=== PATIENT | male | born 1980 | race Caucasian/White ===

== ENCOUNTER 2017-11-16 23:50 | Emergency (ER) | payer SELFPAY ==
[~2017-11-16] VITALS: Ht 185.4 cm; Wt 163.4 kg
[~2017-11-16 23:50] MED LIST: OXYC-360 PO; PHEN12.5 PO; Z.0.NO CURRENT MEDS
[2017-11-17 00:03] VITALS: BP 146/98; PULSE 108; RESP 16; TEMP 98.5; O2SAT 94
[2017-11-17 00:15] VITALS: BP 146/98; PULSE 108; RESP 16; TEMP 98.5; O2SAT 94
--- NOTE | 2017-11-17 00:29 | PD ---
HPI Chief Complaint: Back pain Time Seen by Provider: 00:20 Travel History International Travel<30 days: No Contact w/Intl Traveler<30days: No Traveled to known affect area: No History of Present Illness HPI 36 years old male complains of low back pain. Patient states that he had intermittent low back pain for the past year. Patient states the pain can get worse for the past several days. Patient states that the pain aching pain and sharp pain started in the low back area with radiation to the legs. Patient complains of occasional numbness tingling sensation of the left thigh. Patient denies any dysuria frequency. Patient denies any fever chills. Patient denies any injury. Patient states that the back pain is worse with bending over. On a scale of 1-10 the pain is a 7. Patient has history kidney stone in the past. Patient denies any saddle anesthesia. Patient denies any urinary or bowel incontinence. PFSH Past Medical History Diminished Hearing: No Social History Alcohol Use: No Tobacco Use: No Allergies-Medications (Allergen,Severity, Reaction): Coded Allergies: No Known Allergies (Verified Adverse Reaction, Unknown, 11/17/17) Reported Meds & Prescriptions Reported Meds & Active Scripts Active Review of Systems General / Constitutional: No: Fever Eyes: No: Visual changes HENT: No: Headaches Cardiovascular: No: Chest Pain or Discomfort Respiratory: No: Shortness of Breath Gastrointestinal: No: Abdominal Pain Genitourinary: No: Dysuria Musculoskeletal: No: Pain Skin: No Rash Neurologic: No: Weakness Psychiatric: No: Depression Endocrine: No: Polydipsia Hematologic/Lymphatic: No: Easy Bruising Physical Exam Narrative GENERAL: Well-nourished, well-developed patient. SKIN: Focused skin assessment warm/dry. HEAD: Normocephalic. EYES: No scleral icterus. No injection or drainage. NECK: Supple, trachea midline. No JVD or lymphadenopathy. CARDIOVASCULAR: Regular rate and rhythm without murmurs, gallops, or rubs. RESPIRATORY: Breath sounds equal bilaterally. No accessory muscle use. GASTROINTESTINAL: Abdomen soft, non-tender, nondistended. MUSCULOSKELETAL: No cyanosis, or edema. BACK: Patient has moderate tenderness in palpation lower lumbar area, without obvious deformity. No CVA tenderness. Positive straight leg raising bilaterally. Neurologic exam normal. Data Data Last Documented VS Vital Signs Date Time Temp Pulse Resp B/P (MAP) Pulse Ox O2 Delivery O2 Flow Rate FiO2 11/17/17 00:20 18 11/17/17 00:15 98.5 108 146/98 (114) [address] Lumb Spine W/O Contrast (11/17/17 00:25) Ketorolac Inj (Toradol Inj) (11/17/17 01:15) Dexamethasone Inj (Decadron Inj) (11/17/17 01:15) MDM Medical Decision Making Medical Screen Exam Complete: Yes Emergency Medical Condition: Yes Differential Diagnosis Differential diagnosis including lumbar strain, radiculopathy, spinal stenosis. Narrative Course 36 years old male with low back pain with pain radiating down to bilateral lower extremity and numbness sensation left thigh. Diagnosis Primary Impression: Lumbar radiculopathy Patient Instructions: General Instructions Additional Instructions: Take medication as needed for pain. Follow-up with orthopedist or neurosurgeon. Return if worse. Med/Other Pt SpecificInfo: Prescription(s) given Scripts Tramadol (Ultram) 50 Mg Tab 50 MG PO Q6H Y for PAIN, #12 TAB 0 Refills Prov: Fredo Cason MD 11/17/17 Methocarbamol (Robaxin) 750 Mg Tab 750 MG PO QID for Muscle Spasm, #60 TAB 0 Refills Prov: Fredo Cason MD 11/17/17 Meloxicam (Mobic) 15 Mg Tab 15 MG PO DAILY for Pain, #20 TAB 0 Refills Prov: Fredo Cason MD 11/17/17 Disposition: 01 DISCHARGE HOME Condition: Stable Fredo Cason MD Nov 17, 2017 00:28
[2017-11-17] MEDS ORDERED: KETOROLAC TROMETHAMINE 60 MG/2 ML (IM) VIAL IM ONE (01:15)
[2017-11-17] MEDS ORDERED: DEXAMETHASONE SOD PHOS 4 MG/ML VIAL IM ONE (01:15)
[2017-11-17] MEDS ORDERED: MOBI15TA PO (01:18)
[2017-11-17] MEDS ORDERED: TRAM50 PO (01:18)
[2017-11-17] MEDS ORDERED: ROBA750T PO (01:18)
--- NOTE | 2017-11-17 01:36 | RADRPT ---
EXAM DATE: 11/17/2017 1:19 AM EDT AGE/SEX: 36 years / Male INDICATIONS: Lower back pain radiating into left leg. CLINICAL DATA: This is the patient's initial encounter. Patient reports that signs and symptoms have been present for 4 - 6 days and indicates a pain score of 10/10. MEDICAL/SURGICAL HISTORY: None. None. RADIATION DOSE: 40.23 CTDI (mGy) ; Patient body habitus COMPARISON: No prior exams available for comparison. TECHNIQUE: Contiguous axial images were acquired with a multirow detector CT scanner without contras t. Multiplanar reconstructions in the sagittal and coronal plane were also performed. Using automate d exposure control and adjustment of the mA and/or kV according to patient size, radiation dose was k ept as low as reasonably achievable to obtain optimal diagnostic quality images. DICOM format image data is available electronically for review and comparison. FINDINGS: Vertebrae: The lumbar vertebral bodies are normal in height. There is Schmorl node formation seen at the inferior aspect of L3 and L4 and the superior aspect of L5. There is prominent chronic sclerosis seen at the inferior aspect of L4. There are marginal osteophytes at the L2-L3 through L4-L5 levels. Alignment: Normal. No subluxation. Bilateral renal stones are seen measuring up to 1 cm on the left and 0.5 cm on the right. Hydronephro sis is not seen. T12-L1: The thecal sac has a normal diameter. No evidence of disc bulge or protrusion. The neural foramina are patent bilaterally. L1-L2: The thecal sac has a normal diameter. No evidence of disc bulge or protrusion. The neural f oramina are patent bilaterally. L2-L3: The thecal sac has a normal diameter. No evidence of disc bulge or protrusion. The neural f oramina are patent bilaterally. L3-L4: The thecal sac has a normal diameter. No evidence of disc bulge or protrusion. The neural f oramina are patent bilaterally. L4-L5: There is minimal bulging of the disc without significant stenosis. The thecal sac has a shaw l diameter. The neural foramina are patent bilaterally. L5-S1: The thecal sac has a normal diameter. No evidence of disc bulge or protrusion. The neural f oramina are patent bilaterally. CONCLUSION: 1. Mild degenerative change. 2. Schmorl's nodes seen at the L3-L5 levels. 3. Bilateral renal stones. Electronically signed by: Richi Escoto MD 11/17/2017 1:35 AM EDT
[2017-11-17 01:49] VITALS: BP 140/101
== END 2017-11-17 02:00 | disposition home or self-care (01) ==
LOC: PHED 23:50
DX: M54.16 Radiculopathy, lumbar region (principal); R20.0 Anesthesia of skin; R20.2 Paresthesia of skin; Z87.442 Personal history of urinary calculi
CPT/HCPCS: 72131; 96372; 99283; J1100; J1885